=== PATIENT | female | born 1960 | race Caucasian/White ===

== ENCOUNTER 2018-02-05 15:24 | Emergency (ER) | payer OTHER, MEDICAID ==
[~2018-02-05] VITALS: Ht 149.9 cm; Wt 81.6 kg
[2018-02-05 15:30] VITALS: BP_SYST 205
[2018-02-05] MEDS ORDERED: NACL 0.9% 1,000 ML IV ONE (15:38)
[2018-02-05] MEDS ORDERED: ONDANSETRON HCL 4 MG/2 ML VIAL IVP ONE (15:45)
[2018-02-05 15:48] LABS: BILIRUBIN,URINE NEGATIVE (NEGATIVE); BLOOD, URINE NEGATIVE (NEGATIVE); CLARITY/URINE CLEAR (CLEAR); COLOR,URINE YELLOW (YELLOW); GLUCOSE,URINE NEGATIVE (NEGATIVE); KETONES,URINE NEGATIVE (NEGATIVE); LEUKOCYTE ESTERASE ,URINE NEGATIVE (NEGATIVE); NITRITE, URINE NEGATIVE (NEGATIVE); PH,URINE 6.5 (5.0-8.0); PROTEIN URINE NEGATIVE (NEGATIVE); UROBILINOGEN,URINE 0.2 (0.2-1.0)
[2018-02-05] MEDS ORDERED: MORPHINE 4 MG/ML INJ. SYRINGE IVP ONE (16:00)
[2018-02-05 16:13] LABS: BASOPHILS # (AUTO) 0.1 K/uL (0.0-0.2); BASOPHILS % (AUTO) 1.3 % (0.0-2.0); EOSINOPHILS # (AUTO) 0.1 K/uL (0.0-0.4); EOSINOPHILS % (AUTO) 1.8 % (0.0-4.0); HEMATOCRIT 34.3 % (36-48); HEMOGLOBIN 11.8 g/dL (12.0-16.0); LYMPHOCYTES # (AUTO) 2.3 K/uL (1.0-5.5); LYMPHOCYTES % (AUTO) 30.2 % (20.5-51.5); MEAN CORPUSCULAR HEMOGLOBIN 31 pg (27-31); MEAN CORPUSCULAR HGB CONC 34 % (32-36); MEAN CORPUSCULAR VOLUME 89 fL (79.0-98.0); MONOCYTES # (AUTO) 0.3 K/uL (0.0-1.0); MONOCYTES % (AUTO) 4.5 % (1.7-9.3); NEUTROPHILS # (AUTO) 4.9 K/uL (1.8-7.7); NEUTROPHILS % (AUTO) 62.2 % (40.0-70.0); PLATELET COUNT (AUTO) 227 K/uL (130-430); RED BLOOD CELL COUNT(AUTO) 3.85 MIL/uL (4.2-6.2); RED CELL DISTRIBUTION WIDTH 11.9 % (9.0-15.0); WHITE BLOOD COUNT (AUTO) 7.7 K/uL (4.8-10.8)
[2018-02-05 16:21] LABS: CREATININE 0.71 mg/dL (0.55-1.30); POTASSIUM 3.8 mmol/L (3.5-5.1)
[2018-02-05 16:24] LABS: PROTHROMBIN TIME 10.6 SECS (9.5-12.5)
[2018-02-05 16:26] LABS: ALBUMIN 3.6 g/dL (3.4-4.8); TOTAL BILIRUBIN 0.4 mg/dL (0.0-1.0)
[2018-02-05 17:25] VITALS: BP_SYST 146
== END 2018-02-05 17:25 | disposition home or self-care (01) ==
LOC: SED 15:24
DX: E10.43 Type 1 diabetes mellitus with diabetic autonomic (poly)neuropathy (principal); K31.84 Gastroparesis; I10 Essential (primary) hypertension; G44.209 Tension-type headache, unspecified, not intractable; M79.1 Myalgia
CPT/HCPCS: 36415; 71045; 80053; 81003; 82150; 82550; 83690; 84484; 85025; 85610; 85730; 93005; 96361; 96374; 96375; 99285; J2270; J2405; J7030

== ENCOUNTER 2019-04-18 22:01 | Emergency (ER) | payer OTHER, MEDICAID ==
[~2019-04-18] VITALS: Ht 180.3 cm; Wt 81.6 kg
[2019-04-18 22:21] VITALS: BP_SYST 163
--- NOTE | 2019-04-18 22:39 | NUR ---
Patient to ER H1 to gown for evaluation. Side rails up.
--- NOTE | 2019-04-18 22:40 | NUR ---
PATIENT BROUGHT IN BY BLS C/O OF NEAR SYNCOPE TONIGHT. C/O OF LOCALIZED HEADACHE AND MILD NECK PAIN. NO OTHER COMPLAINTS/INJURIES PER PATIENT OR NOTED. WILL CONTINUE TO MONITOR.
--- NOTE | 2019-04-18 22:44 | NUR ---
ER at bedside examining patient.
[2019-04-18 23:16] LABS: BILIRUBIN,URINE NEGATIVE (NEGATIVE); BLOOD, URINE NEGATIVE (NEGATIVE); CLARITY/URINE CLEAR (CLEAR); COLOR,URINE YELLOW (YELLOW); GLUCOSE,URINE 3+ (NEGATIVE); KETONES,URINE NEGATIVE (NEGATIVE); LEUKOCYTE ESTERASE ,URINE NEGATIVE (NEGATIVE); NITRITE, URINE NEGATIVE (NEGATIVE); PROTEIN URINE NEGATIVE (NEGATIVE); UROBILINOGEN,URINE 0.2 (0.2-1.0)
[2019-04-19 00:18] LABS: BASOPHILS % (AUTO) 0.3 % (0.0-2.0); HEMATOCRIT 33.7 % (36-48); HEMOGLOBIN 11.2 g/dL (12.0-16.0); LYMPHOCYTES # (AUTO) 0.9 K/uL (1.0-5.5); LYMPHOCYTES % (AUTO) 13.6 % (20.5-51.5); MEAN CORPUSCULAR HEMOGLOBIN 30 pg (27-31); MEAN CORPUSCULAR HGB CONC 33 % (32-36); MEAN CORPUSCULAR VOLUME 91 fL (79.0-98.0); MONOCYTES # (AUTO) 0.1 K/uL (0.0-1.0); MONOCYTES % (AUTO) 0.8 % (1.7-9.3); NEUTROPHILS # (AUTO) 5.5 K/uL (1.8-7.7); NEUTROPHILS % (AUTO) 85.3 % (40.0-70.0); PLATELET COUNT (AUTO) 189 K/uL (130-430); RED BLOOD CELL COUNT(AUTO) 3.71 MIL/uL (4.2-6.2); RED CELL DISTRIBUTION WIDTH 14.3 % (9.0-15.0); WHITE BLOOD COUNT (AUTO) 6.5 K/uL (4.8-10.8)
[2019-04-19 00:46] LABS: CALCIUM 8.5 mg/dL (8.4-11.0)
[2019-04-19 01:12] LABS: ALBUMIN 3.2 g/dL (3.4-4.8); TOTAL BILIRUBIN 0.2 mg/dL (0.0-1.0)
[2019-04-19] MEDS ORDERED: NACL 0.9% 1,000 ML IV ONE (01:30)
--- NOTE | 2019-04-19 01:47 | NUR ---
patient went to radiology in stable condition.
--- NOTE | 2019-04-19 02:02 | NUR ---
patient returned from radiology in stable condition.
--- NOTE | 2019-04-19 02:05 | NUR ---
# 20 gauge angiocath placed to RAC. Use of asceptic technique. Opsite placed over site. Blood return noted. Blood for lab drawn from site. Flushed with 10 cc of normal saline. No evidence of infiltration noted. Patient tolerated well.
--- NOTE | 2019-04-19 02:09 | NUR ---
Medicated per MD orders. IVF infusing with no s/s of infiltration at this time. Will cont to monitor
[2019-04-19] MEDS ORDERED: MORPHINE 4 MG/ML INJ. SYRINGE IVP ONE (03:00)
--- NOTE | 2019-04-19 03:25 | NUR ---
Medication was given, pt tolerated well. No adverse reaction, will continue to monitor.
[2019-04-19 05:15] VITALS: BP_SYST 144
--- NOTE | 2019-04-19 05:15 | NUR ---
Patient given written and verbal discharge instructions and verbalizes understanding. ER MD discussed with patient the results and treatment provided. Patient in stable condition. ID arm band removed. IV catheter removed intact and dressing applied, no active bleeding. Rx of Ibuprofen given. Patient educated on pain management and to follow up with PMD. Pain Scale 0. Opportunity for questions provided and answered. Medication side effect fact sheet provided.
--- NOTE | 2019-04-19 06:08 | NUR ---
Note undone in EDM - 04/19/19 at 0608 by [email or web address] Patient given written and verbal discharge instructions and verbalizes understanding. ER discussed with patient the results and treatment provided. Patient in stable condition. ID arm band removed. IV catheter removed intact and dressing applied, no active bleeding. Rx of Ibuprofen given. Patient educated on pain management and to follow up with PMD. Pain Scale 0. Opportunity for questions provided and answered. Medication side effect fact sheet provided.
== END 2019-04-19 05:15 | disposition home or self-care (01) ==
LOC: SED 22:01
DX: R42 Dizziness and giddiness (principal); R51 Headache; M54.2 Cervicalgia; E11.9 Type 2 diabetes mellitus without complications; I10 Essential (primary) hypertension
CPT/HCPCS: 36415; 70450; 71045; 72125; 80053; 81003; 82962; 84484; 85025; 85379; 96361; 96374; 99284; J2270; J7030

== ENCOUNTER 2020-12-09 14:05 | Emergency (ER) | payer OTHER, MEDICAID ==
[~2020-12-09] VITALS: Ht 149.9 cm; Wt 58.5 kg
[~2020-12-09 14:05] MED LIST: BENZ-16 PO; EMPA10TA PO; FAMO40TA7 PO; LACT1CAP72 PO; LEVO500T89 PO; LINA5TAB2 PO; LIP10 PO; LOSA100T3 PO; METR500T PO; OMEP40CA13 PO; SENN8.6T19 PO; VITD2000 PO
[2020-12-09 14:14] VITALS: BP_SYST 142
[2020-12-09 15:51] LABS: BASOPHILS # (AUTO) 0.1 K/uL (0.0-0.2); BASOPHILS % (AUTO) 0.6 % (0.0-2.0); EOSINOPHILS # (AUTO) 0.1 K/uL (0.0-0.4); EOSINOPHILS % (AUTO) 0.5 % (0.0-4.0); HEMATOCRIT 37.5 % (36-48); HEMOGLOBIN 12.9 g/dL (12.0-16.0); LYMPHOCYTES # (AUTO) 2.2 K/uL (1.0-5.5); LYMPHOCYTES % (AUTO) 17.5 % (20.5-51.5); MEAN CORPUSCULAR HEMOGLOBIN 32 pg (27-31); MEAN CORPUSCULAR HGB CONC 34 % (32-36); MEAN CORPUSCULAR VOLUME 94 fL (79.0-98.0); MONOCYTES # (AUTO) 0.6 K/uL (0.0-1.0); MONOCYTES % (AUTO) 5.2 % (1.7-9.3); NEUTROPHILS # (AUTO) 9.5 K/uL (1.8-7.7); NEUTROPHILS % (AUTO) 76.2 % (40.0-70.0); PLATELET COUNT (AUTO) 179 K/uL (130-430); WHITE BLOOD COUNT (AUTO) 12.5 K/uL (4.8-10.8)
[2020-12-09 16:06] LABS: CALCIUM 8.7 mg/dL (8.4-11.0); CREATININE 0.81 mg/dL (0.55-1.30)
[2020-12-09 16:13] LABS: ALBUMIN 3.4 g/dL (3.4-4.8); TOTAL BILIRUBIN 0.5 mg/dL (0.0-1.0)
[2020-12-09 16:29] LABS: PROTHROMBIN TIME 10.4 SECS (9.5-12.5)
[2020-12-09] MEDS ORDERED: KETOROLAC TROMETHAMINE 30 MG VIAL IM ONE (17:00)
[2020-12-09] MEDS ORDERED: IBUP-1969 PO (17:15)
[2020-12-09] MEDS ORDERED: HYDR-3919 PO (17:15)
[2020-12-09 17:39] VITALS: BP_SYST 142
== END 2020-12-09 17:39 | disposition home or self-care (01) ==
LOC: SED 14:05
DX: S30.0XXA Contusion of lower back and pelvis, initial encounter (principal); S00.83XA Contusion of other part of head, initial encounter; W01.0XXA Fall on same level from slipping, tripping and stumbling without subsequent striking against object, initial encounter; Y93.89 Activity, other specified; Y92.89 Other specified places as the place of occurrence of the external cause; Y99.8 Other external cause status
CPT/HCPCS: 36415; 70450; 71045; 72125; 72220; 76376; 80053; 82550; 84484; 85025; 85610; 85730; 93005; 96372; 99285; J1885

== ENCOUNTER 2021-04-18 18:16 | Emergency (ER) | payer OTHER, MEDICAID ==
[~2021-04-18] VITALS: Ht 149.9 cm; Wt 54.0 kg
[~2021-04-18 18:16] MED LIST changes: +HYDR-3919 PO; +IBUP-1969 PO
[2021-04-18 18:25] VITALS: BP_SYST 150
--- NOTE | 2021-04-18 20:00 | NUR ---
Pt walked in c/o burn to bilateral buttocks after sitting on something hot. +dressing applied prior to arrival, +multiple intact blisters and redness noted bilaterally.
--- NOTE | 2021-04-18 20:00 | NUR ---
Dr. Phan at bedside for MSE.
[2021-04-18 20:15] VITALS: BP_SYST 150
--- NOTE | 2021-04-18 20:15 | NUR ---
Patient given written and verbal discharge instructions and verbalizes understanding. ER MD discussed with patient the results and treatment provided. Patient in stable condition. ID arm band removed. Rx of LIDOCAINE TOPICAL, MOTRIN, TYLENOL given. Patient educated on pain management and to follow up with PMD. Pain Scale 8/10. Opportunity for questions provided and answered. Medication side effect fact sheet provided.
== END 2021-04-18 20:15 | disposition home or self-care (01) ==
LOC: SED 18:16
DX: T21.25XA Burn of second degree of buttock, initial encounter (principal); I10 Essential (primary) hypertension; E11.9 Type 2 diabetes mellitus without complications; Z79.899 Other long term (current) drug therapy; X08.8XXA Exposure to other specified smoke, fire and flames, initial encounter; Y93.89 Activity, other specified; Y92.89 Other specified places as the place of occurrence of the external cause; Y99.8 Other external cause status
CPT/HCPCS: 99282

== ENCOUNTER 2021-12-30 17:01 | Emergency (ER) | payer OTHER, MEDICAID ==
[~2021-12-30] VITALS: Ht 152.4 cm; Wt 59.0 kg
[~2021-12-30 17:01] MED LIST changes: -LEVO500T89 PO; +LEVO500T90 PO; -OMEP40CA13 PO; +OMEP40CA20 PO
--- NOTE | 2021-12-30 17:10 | NUR ---
Patient to ER bed 03 to gown for evaluation. Side rails up.
--- NOTE | 2021-12-30 17:12 | NUR ---
Pt brought by self, A&Ox4, pt presents to ER with abdominal pain, N/V, skin pink and warm, cap refill <3, VSS,respirations even and unlabored,cap refill <3.
[2021-12-30 19:05] LABS: BILIRUBIN,URINE NEGATIVE (NEGATIVE); BLOOD, URINE NEGATIVE (NEGATIVE); CLARITY/URINE CLEAR (CLEAR); COLOR,URINE YELLOW (YELLOW); GLUCOSE,URINE 3+ (NEGATIVE); KETONES,URINE NEGATIVE (NEGATIVE); LEUKOCYTE ESTERASE ,URINE NEGATIVE (NEGATIVE); NITRITE, URINE NEGATIVE (NEGATIVE); PROTEIN URINE NEGATIVE (NEGATIVE); UROBILINOGEN,URINE 0.2 (0.2-1.0)
[2021-12-30 19:21] LABS: BACTERIA,URINE RARE /HPF (None Seen); RBC,URINE NONE SEEN /HPF (0-3); WBC,URINE 0-3 /HPF (0-3)
[2021-12-30] MEDS ORDERED: NACL 0.9% 1,000 ML IV ONE (20:30)
[2021-12-30] MEDS ORDERED: MORPHINE 2 MG/ML INJ. SYRINGE IVP ONE (20:30)
[2021-12-30 20:32] LABS: HEMATOCRIT 43.7 % (36-48); HEMOGLOBIN 14.8 g/dL (12.0-16.0); MEAN CORPUSCULAR HEMOGLOBIN 33 pg (27-31); MEAN CORPUSCULAR HGB CONC 34 % (32-36); MEAN CORPUSCULAR VOLUME 96 fL (79.0-98.0); PLATELET COUNT (AUTO) 176 K/uL (130-430); RED BLOOD CELL COUNT(AUTO) 4.56 MIL/uL (4.2-6.2); RED CELL DISTRIBUTION WIDTH 12.8 % (9.0-15.0); WHITE BLOOD COUNT (AUTO) 22.3 K/uL (4.8-10.8)
[2021-12-30 20:44] LABS: CALCIUM 9.5 mg/dL (8.4-11.0); CREATININE 0.68 mg/dL (0.55-1.30); POTASSIUM 3.3 mmol/L (3.5-5.1)
[2021-12-30] MEDS ORDERED: PANTOPRAZOLE SODIUM 40 MG/VIAL (PROTONIX) IVP ONE (20:45)
[2021-12-30 21:02] LABS: ALBUMIN 3.6 g/dL (3.4-4.8); TOTAL BILIRUBIN 0.3 mg/dL (0.0-1.0)
[2021-12-30 23:38] LABS: BAND % (MANUAL) 6 % (0-6); BASOPHILS % (MANUAL) 0 % (0-2); EOSINOPHILS % (MANUAL) 0 % (0-7); LYMPHOCYTES % (MANUAL) 7 % (20-46); MONOCYTES % (MANUAL) 2 % (0-11)
[2021-12-30] MEDS ORDERED: MOM PO (23:58)
--- NOTE | 2021-12-31 00:10 | NUR ---
Patient given written and verbal discharge instructions and verbalizes understanding. ER MD [place] discussed with patient the results and treatment provided. Patient in stable condition. ID arm band removed. IV catheter removed intact and dressing applied, no active bleeding. Rx of MOM sent to pharmacy of choice. Patient educated on pain management and to follow up with PMD. Pain Scale 0/10. Opportunity for questions provided and answered. Medication side effect fact sheet provided. Addendum: 12/31/21 at 0019 by [email or web address] SHELDON Ruiz
[2021-12-31 00:13] VITALS: BP_SYST 124
== END 2021-12-30 23:59 | disposition home or self-care (01) ==
LOC: SED 17:01
DX: K59.00 Constipation, unspecified (principal); I10 Essential (primary) hypertension; E11.9 Type 2 diabetes mellitus without complications; Z79.899 Other long term (current) drug therapy
CPT/HCPCS: 36415; 74176; 76376; 80053; 81000; 83690; 85007; 85027; 96361; 96374; 96375; 99284; C9113; J2270; J7030

== ENCOUNTER 2022-07-22 20:35 | Emergency (ER) | payer OTHER, MEDICAID ==
[~2022-07-22] VITALS: Ht 152.4 cm; Wt 54.4 kg
[~2022-07-22 20:35] MED LIST changes: +LEVO-62 PO; -LEVO500T90 PO; +MOM PO
[2022-07-22 20:53] VITALS: BP_SYST 162
--- NOTE | 2022-07-22 21:03 | NUR ---
PT FROM HOME WITH C/O OF [facility] YESTERDAY DUE TO REPORTED WEAK KNEES. REPORTS HEAD TRAUMA, RUQ PAIN, PAIN WITH INSPIRATION, THOMAS. PT A&O X2, AMBULATORY. MADE AWARE OF NEED FOR MSE.
--- NOTE | 2022-07-22 22:44 | NUR ---
DR. BRIGHT WITH PATIENT FOR EVALUATION.
[2022-07-22] MEDS ORDERED: KETOROLAC TROMETHAMINE 60 MG/2 ML VIAL IM ONE (23:00)
[2022-07-22] MEDS ORDERED: HYDR-3917 PO (23:00)
[2022-07-22] MEDS ORDERED: IBUP-1969 PO (23:00)
[2022-07-22 23:25] VITALS: BP_SYST 142
--- NOTE | 2022-07-22 23:25 | NUR ---
Patient given written and verbal discharge instructions and verbalizes understanding. ER MD discussed with patient the results and treatment provided. Patient in stable condition. ID arm band removed. Rx of [place] and Ibuprofen given. Patient educated on pain management and to follow up with PMD. Pain Scale 2/10. Opportunity for questions provided and answered. Medication side effect fact sheet provided.
== END 2022-07-22 23:25 | disposition home or self-care (01) ==
LOC: SED 20:35
DX: R07.89 Other chest pain (principal); R10.9 Unspecified abdominal pain; M25.511 Pain in right shoulder; R06.02 Shortness of breath; E11.9 Type 2 diabetes mellitus without complications; I10 Essential (primary) hypertension; Z79.899 Other long term (current) drug therapy
CPT/HCPCS: 99284; 70450; 71045; 72125; 76376; 96372; J1885

== ENCOUNTER 2022-08-10 14:48 | Emergency (ER) | payer OTHER, MEDICAID ==
[~2022-08-10] VITALS: Ht 149.9 cm; Wt 52.6 kg
[~2022-08-10 14:48] MED LIST changes: +HYDR-3917 PO
[2022-08-10 15:20] VITALS: BP_SYST 170
[2022-08-10] MEDS ORDERED: KETOROLAC TROMETHAMINE 60 MG/2 ML VIAL IM ONE (15:30)
--- NOTE | 2022-08-10 15:31 | NUR ---
ER at bedside examining patient.
[2022-08-10] MEDS ORDERED: LIDO1ADH71 TD (15:37)
[2022-08-10] MEDS ORDERED: CYCL10TA24 PO (15:37)
[2022-08-10] MEDS ORDERED: NAPR-690 PO (15:37)
--- NOTE | 2022-08-10 18:00 | NUR ---
Patient is a 62-year-old female with a history of DM, hypertension, and arthritis who presents with 3-day history of left-sided neck pain that is worse with movement. Patient receives injections all over her head for arthritis.
--- NOTE | 2022-08-10 19:15 | NUR ---
Patient given written and verbal discharge instructions and verbalizes understanding. ER MD discussed with patient the results and treatment provided. Patient in stable condition. ID arm band removed. Rx of FLEXERIL LIDOCAINE AND NAPROXEN given. Patient educated on pain management and to follow up with PMD. Opportunity for questions provided and answered. Medication side effect fact sheet provided.
--- NOTE | 2022-08-12 15:45 | NUR ---
Note nataliia in ED - 08/12/22 at 2341 by ALBERT Patient is a 62-year-old female with a history of DM, hypertension, and arthritis who presents with 3-day history of left-sided neck pain that is worse with movement. Patient receives injections all over her head for arthritis.
[2022-08-12 23:35] VITALS: BP_SYST 170
== END 2022-08-10 17:00 | disposition home or self-care (01) ==
LOC: SED 14:48
DX: S29.012A Strain of muscle and tendon of back wall of thorax, initial encounter (principal); M54.2 Cervicalgia; I10 Essential (primary) hypertension; E11.9 Type 2 diabetes mellitus without complications; Z79.899 Other long term (current) drug therapy; X50.0XXA Overexertion from strenuous movement or load, initial encounter; Y93.89 Activity, other specified; Y92.89 Other specified places as the place of occurrence of the external cause; Y99.8 Other external cause status
CPT/HCPCS: 99283; 96372; J1885

== ENCOUNTER 2022-09-11 15:24 | Inpatient (IN) | payer BC, MEDICAID ==
[~2022-09-11] VITALS: Ht 149.9 cm; Wt 53.5 kg
[~2022-09-11 15:24] MED LIST changes: +CYCL10TA24 PO; +LIDO1ADH71 TD; +NAPR-690 PO
[2022-09-11 15:30] VITALS: BP_SYST 187
[2022-09-11] MEDS ORDERED: NS 500 ML IV ONE (18:00)
--- NOTE | 2022-09-11 18:00 | NUR ---
PT BIB SELF FROM HOME. CC SOB, PT LIVES ALONE WITH PAST MEDICAL HISTORY DIABETES. PT WITH FLU LIKE SYMPTOMS OF COUGH WITH PRODUCTION OF PHLEGM, DENIES NVD.
[2022-09-11 18:37] LABS: BASOPHILS % (AUTO) 0.4 % (0.0-2.0); EOSINOPHILS # (AUTO) 0.1 K/uL (0.0-0.4); MONOCYTES # (AUTO) 0.5 K/uL (0.0-1.0); NEUTROPHILS # (AUTO) 7.7 K/uL (1.8-7.7); RED BLOOD CELL COUNT(AUTO) 4.19 MIL/uL (4.2-6.2); WHITE BLOOD COUNT (AUTO) 9.3 K/uL (4.8-10.8)
[2022-09-11] MEDS ORDERED: iohexoL 350 mgI/mL, 100 ML INFUS..BTL IV ONE (18:37)
--- NOTE | 2022-09-11 18:45 | NUR ---
# 20 gauge angiocath placed to lac. Use of asceptic technique. Opsite placed over site. Blood return noted. Blood for lab drawn from site. Flushed with 10 cc of normal saline. No evidence of infiltration noted. Patient tolerated well.
[2022-09-11 18:46] LABS: EOSINOPHILS % (AUTO) 0.7 % (0.0-4.0); HEMATOCRIT 40.5 % (36-48); HEMOGLOBIN 14.1 g/dL (12.0-16.0); LYMPHOCYTES # (AUTO) 1.1 K/uL (1.0-5.5); LYMPHOCYTES % (AUTO) 11.3 % (20.5-51.5); MEAN CORPUSCULAR HEMOGLOBIN 34 pg (27-31); MEAN CORPUSCULAR HGB CONC 35 % (32-36); MEAN CORPUSCULAR VOLUME 97 fL (79.0-98.0); MONOCYTES % (AUTO) 4.9 % (1.7-9.3); NEUTROPHILS % (AUTO) 82.7 % (40.0-70.0); PLATELET COUNT (AUTO) 143 K/uL (130-430); RED CELL DISTRIBUTION WIDTH 13.4 % (9.0-15.0)
[2022-09-11 18:49] LABS: INR 0.9 (0.8-1.2); PROTHROMBIN TIME 9.4 SECS (9.5-12.5)
[2022-09-11 18:53] LABS: ALANINE AMINOTRANSFERASE 30 U/L (12-78); ALBUMIN 3.3 g/dL (3.4-4.8); ANION GAP 10 (5-15); ASPARTATE AMINOTRANSFERASE 25 U/L (10-37); CALCIUM 9.3 mg/dL (8.4-11.0); CHLORIDE 96 mmol/L (98-107); CREATININE 0.71 mg/dL (0.55-1.30); TOTAL BILIRUBIN 0.5 mg/dL (0.0-1.0); UREA NITROGEN, BLOOD 21 mg/dL (8-21)
[2022-09-11 19:07] LABS: GFR AFRICAN AMERICAN 107 mL/min (>90)
[2022-09-11 19:08] LABS: GLUCOSE 404 mg/dL (70-99)
[2022-09-11] MEDS ORDERED: KCL 20 mEq in NS 1000 mL 1,000 ML IV ONE (19:15)
--- NOTE | 2022-09-11 19:21 | NUR ---
ER at bedside examining patient.
[2022-09-11] MEDS ORDERED: SERT-131 PO (19:27)
[2022-09-11] MEDS ORDERED: OMEP40CA20 PO (19:27)
[2022-09-11] MEDS ORDERED: METF-834 PO (19:28)
[2022-09-11] MEDS ORDERED: CYCL10TA25 PO (19:28)
[2022-09-11] MEDS ORDERED: LAMO25TA PO (19:28)
[2022-09-11] MEDS ORDERED: DOCU-192 PO (19:28)
[2022-09-11] MEDS ORDERED: LOSA1TAB43 PO (19:28)
[2022-09-11] MEDS ORDERED: LIP20 PO (19:28)
[2022-09-11] MEDS ORDERED: NAPR-1174 PO (19:28)
[2022-09-11] MEDS ORDERED: DIPH25TA62 PO (19:28)
[2022-09-11] MEDS ORDERED: PROG200C11 PO (19:28)
--- NOTE | 2022-09-11 19:45 | NUR ---
Med. reconciled per pt list.
--- NOTE | 2022-09-11 19:49 | NUR ---
REPORT RECEIVED FROM MESSI ANTOINE
[2022-09-11] MEDS ORDERED: KCL 20 mEq in 100 mL (PREMIX) 100 ML IV ONE (20:00)
[2022-09-11] MEDS ORDERED: ASPIRIN 325 MG TABLET PO ONE (20:00)
[2022-09-11] MEDS ORDERED: NITROGLYCERIN 0.4 MG TAB.SUBL SL ONE (20:00)
[2022-09-11] MEDS ORDERED: KETOROLAC TROMETHAMINE 30 MG VIAL IVP ONE (20:15)
--- NOTE | 2022-09-11 21:28 | NUR ---
IV IN LEFT AC INFILITRATED # 20 gauge angiocath placed to RAC. Use of asceptic technique. Opsite placed over site. Blood return noted. Blood for lab drawn from site. Flushed with 10 cc of normal saline. No evidence of infiltration noted. Patient tolerated well.
[2022-09-12] VITALS: BP_SYST 155
[2022-09-12] MEDS ORDERED: INSULIN REGULAR, HUMAN 10 UNITS/0.1 ML, 3 ML VIAL ONE (01:26)
[2022-09-12] MEDS: KETOROLAC TROMETHAMINE 30 MG VIAL IVP PRN ×4 (01:27→22:24)
[2022-09-12] MEDS: guaiFENesin 200 MG/CODEINE 20 MG/ 10 ML UDC PO PRN ×3 (01:27→22:34)
[2022-09-12] MEDS: INSULIN REGULAR, HUMAN 100 UNITS/ML, 3 ML VIAL (humuLIN R) SUBCUT PRN ×4 (01:30→22:16)
[2022-09-12 04:00] VITALS: BP_SYST 158
--- NOTE | 2022-09-12 08:01 | NUR ---
Admit bed requested Patient will be admitted to care of . Admitted to TELEMETRY unit. Diagnosis INFLUENZA A Inpatient (Yes or No) Y Observation (Yes or No) N Orientation concerns or request close to nursing station (Yes or No) N Covid Status N On vent or bipap N Isolation requirements Y Needs a sitter N From Home (Yes or if No enter name of facility) Requires Dialysis (Yes or No) N Med Rec Completed (Yes of No) Y
--- NOTE | 2022-09-12 08:50 | NUR ---
ACCMISTYECK 158 PT SERVED DIABETIC DIET.
[2022-09-12] MEDS ORDERED: OSELTAMIVIR PHOSPHATE 75 MG CAPSULE PO SCH (11:45)
[2022-09-12] MEDS ORDERED: OSELTAMIVIR PHOSPHATE 75 MG CAPSULE PO ONE (12:00)
[2022-09-12] MEDS ORDERED: KETOROLAC TROMETHAMINE 30 MG VIAL ONE (14:41)
--- NOTE | 2022-09-12 14:49 | NUR ---
Accucheck blood sugar 258 asymptomatic.
--- NOTE | 2022-09-12 15:11 | NUR ---
Admission Note Received patient from ER with diagnosis of INFLUNEZA A . Initial Plan of Care discussed-patient verbalized understanding.. Oriented to room, call light, pain management and safety.
[2022-09-12 15:28] VITALS: BP_SYST 155
--- NOTE | 2022-09-12 15:32 | NUR ---
Patient will be admitted to care of [facility]. Admitted to tele unit. Will go to room 100a. Belongings list completed. Complete and up to date summary report printed. SBAR report to be given at bedside with opportunity for questions.
--- NOTE | 2022-09-12 18:55 | NUR ---
CLOSING NOTES PT STABLE NOTIN ACUTE DISTRESS. DENIES SOB AT THIS TIME. NEED ATTENDED
[2022-09-12 20:00] VITALS: BP_SYST 155
--- NOTE | 2022-09-12 20:00 | NUR ---
OPENING Patient resting in bed, 96% on room air. No sign of distress noted. Safety and isolation precautions in place.
[2022-09-12] MEDS: OSELTAMIVIR PHOSPHATE 75 MG CAPSULE PO SCH (22:07)
--- NOTE | 2022-09-12 22:34 | NUR ---
Patient reporting headache and sore throat. Given Toradol and Robitussin PRN. IVs to left and right AC patent. Safety precautions in place.
[2022-09-13] VITALS: BP_SYST 137
--- NOTE | 2022-09-13 04:15 | NUR ---
ROUNDS Patient sleeping in bed, unlabored breathing on room air. No distress noted.
[2022-09-13] MEDS: INSULIN REGULAR, HUMAN 100 UNITS/ML, 3 ML VIAL (humuLIN R) SUBCUT PRN ×4 (06:57→20:38)
[2022-09-13] MEDS: guaiFENesin 200 MG/CODEINE 20 MG/ 10 ML UDC PO PRN ×3 (07:00→22:34)
--- NOTE | 2022-09-13 07:06 | NUR ---
CLOSING Patient resting in bed, unlabored breathing on room air. Complaint of sore throat this morning, given Robitussin PRN. Ambulated to bathroom. Safety precautions in place.
[2022-09-13 07:40] LABS: ALBUMIN 2.7 g/dL (3.4-4.8); CALCIUM 8.3 mg/dL (8.4-11.0); CREATININE 0.37 mg/dL (0.55-1.30); TOTAL BILIRUBIN 0.5 mg/dL (0.0-1.0)
[2022-09-13 07:43] LABS: BASOPHILS % (AUTO) 0.3 % (0.0-2.0); EOSINOPHILS % (AUTO) 0.3 % (0.0-4.0); HEMATOCRIT 36.1 % (36-48); HEMOGLOBIN 12.7 g/dL (12.0-16.0); LYMPHOCYTES # (AUTO) 1.4 K/uL (1.0-5.5); LYMPHOCYTES % (AUTO) 21.4 % (20.5-51.5); MEAN CORPUSCULAR HEMOGLOBIN 34 pg (27-31); MEAN CORPUSCULAR HGB CONC 35 % (32-36); MEAN CORPUSCULAR VOLUME 96 fL (79.0-98.0); MONOCYTES # (AUTO) 0.5 K/uL (0.0-1.0); NEUTROPHILS # (AUTO) 4.6 K/uL (1.8-7.7); PLATELET COUNT (AUTO) 140 K/uL (130-430); RED BLOOD CELL COUNT(AUTO) 3.77 MIL/uL (4.2-6.2); RED CELL DISTRIBUTION WIDTH 13.1 % (9.0-15.0)
[2022-09-13 08:16] VITALS: BP_SYST 145
[2022-09-13] MEDS: OSELTAMIVIR PHOSPHATE 75 MG CAPSULE PO SCH ×2 (08:26→20:32)
[2022-09-13] MEDS: KETOROLAC TROMETHAMINE 30 MG VIAL IVP PRN ×2 (08:26→14:51)
[2022-09-13] MEDS: ATORVASTATIN 20 MG TABLET PO SCH (08:27)
[2022-09-13] MEDS: SERTRALINE HCL 50 MG TABLET PO SCH (08:27)
[2022-09-13] MEDS: LOSARTAN POTASSIUM 50 MG TABLET (COZAAR) PO SCH (08:27)
[2022-09-13 08:34] LABS: WHITE BLOOD COUNT (AUTO) 6.6 K/uL (4.8-10.8)
[2022-09-13] MEDS ORDERED: IPRATROPIUM/ALBUTEROL SULFATE 3 ML AMPUL.NEB (DUONEB) INH PRN (11:45)
[2022-09-13 11:46] VITALS: BP_SYST 153
[2022-09-13 14:54] VITALS: BP_SYST 148
[2022-09-13] MEDS: IPRATROPIUM/ALBUTEROL SULFATE 3 ML AMPUL.NEB (DUONEB) INH SCH ×3 (15:00→23:37)
[2022-09-13] MEDS ORDERED: methylPREDNISolone SOD SUCC/PF 62.5 MG/ML VIAL IVP ONE (15:15)
--- NOTE | 2022-09-13 15:22 | NUR ---
0800 LATE ENTRY DUE TO CARE- PT STABLE .NOT IN ACUTE DISTRESS.. RES EVEN AND UNLABORED.VITALS STABLE. SAFETY/FALL PRECAUTION IN PLACE. KEPT COMFORTABLE. 92 SATURATION 95% ON RA.NOT IN ACUTE DISTRESS Addendum: 09/13/22 at 1529 by Cheryl Bull RN 1000-PT STABLE NOT IN ACUTE DISTRESS.
--- NOTE | 2022-09-13 15:29 | NUR ---
PT STABLE SEEN BY DR LEE.PT C/ OF THROAT PAIN /COUGH MEDICATED WITH TORADOL IV ANF ROBITUSSIN ORDERED. WILL CONTINUE TO MONITOR
--- NOTE | 2022-09-13 19:21 | NUR ---
CLOSING NOTES PT STABLE RESTING COMFORTABLY. NEEDS ATTENDED. NOT IN ACUTE DISTRESS
[2022-09-13 20:00] VITALS: BP_SYST 140
[2022-09-13] MEDS: methylPREDNISolone SOD SUCC/PF 62.5 MG/ML VIAL IVP SCH (22:24)
[2022-09-14] MEDS: KETOROLAC TROMETHAMINE 30 MG VIAL IVP PRN ×3 (00:02→23:42)
[2022-09-14] MEDS: IPRATROPIUM/ALBUTEROL SULFATE 3 ML AMPUL.NEB (DUONEB) INH SCH ×6 (03:16→23:20)
[2022-09-14 05:58] VITALS: BP_SYST 136
[2022-09-14] MEDS: INSULIN REGULAR, HUMAN 100 UNITS/ML, 3 ML VIAL (humuLIN R) SUBCUT PRN ×4 (07:43→22:07)
[2022-09-14 08:00] VITALS: BP_SYST 157
--- NOTE | 2022-09-14 08:00 | NUR ---
Schs5om notes Alert,oriented. complain of headache, still coughing, ambulate to the bathroom, on room air, tolerating so far. Call light within reach. Enc to call for help as needed
[2022-09-14] MEDS: methylPREDNISolone SOD SUCC/PF 62.5 MG/ML VIAL IVP SCH (08:44)
[2022-09-14] MEDS: LOSARTAN POTASSIUM 50 MG TABLET (COZAAR) PO SCH (08:45)
[2022-09-14] MEDS: OSELTAMIVIR PHOSPHATE 75 MG CAPSULE PO SCH ×2 (08:45→22:01)
[2022-09-14] MEDS: ATORVASTATIN 20 MG TABLET PO SCH (08:45)
[2022-09-14] MEDS: SERTRALINE HCL 50 MG TABLET PO SCH (08:45)
--- NOTE | 2022-09-14 12:15 | NUR ---
notes eating lunch, needs attended
[2022-09-14 16:03] VITALS: BP_SYST 155
--- NOTE | 2022-09-14 18:24 | NUR ---
BLOOD SUGAR IS 456- PAGED DR. CHOPRA. WAITING FOR MD TO CALL BACK.
--- NOTE | 2022-09-14 18:41 | NUR ---
CLOSING NOTES EATING DINNER, NO CHANGE IN ASSESSMENT. DENIES ANY PAIN. WILL ENDORSE
--- NOTE | 2022-09-14 19:15 | NUR ---
MD CALLED- SPOKE TO DR. CHOPRA AND MADE AWARE OF BLOOD SUGAR OF 456. NEW ORDERS RECEIVED. MD ORDERED TO CONTINUE BLOOD SUGAR MEDICATIONS AT HOME.
[2022-09-14] MEDS ORDERED: INSULIN REGULAR, HUMAN 10 UNITS/0.1 ML, 3 ML VIAL SUBCUT ONE (19:30)
[2022-09-14 20:00] VITALS: BP_SYST 160
--- NOTE | 2022-09-14 20:02 | NUR ---
RECEIVED PT AMBULATING TO THE BATHROOM. GAIT STEADY. +COUGH WITH THICK BROWN MUCUS. LUNGS CLEAR. O2 SAT 97% ON RA
[2022-09-14] MEDS ORDERED: metFORMIN HCL 500 MG TABLET PO ONE (20:45)
[2022-09-14] MEDS: predniSONE 20 MG TABLET PO SCH (22:00)
[2022-09-14] MEDS: guaiFENesin 200 MG/CODEINE 20 MG/ 10 ML UDC PO PRN (22:00)
[2022-09-15 02:32] VITALS: BP_SYST 140
[2022-09-15] MEDS: IPRATROPIUM/ALBUTEROL SULFATE 3 ML AMPUL.NEB (DUONEB) INH SCH ×5 (03:00→19:42)
[2022-09-15] MEDS: INSULIN REGULAR, HUMAN 100 UNITS/ML, 3 ML VIAL (humuLIN R) SUBCUT PRN ×3 (06:21→17:06)
[2022-09-15] MEDS: OSELTAMIVIR PHOSPHATE 75 MG CAPSULE PO SCH (09:31)
[2022-09-15] MEDS: SERTRALINE HCL 50 MG TABLET PO SCH (09:31)
[2022-09-15] MEDS: metFORMIN HCL 500 MG TABLET PO SCH ×2 (09:31→17:06)
[2022-09-15] MEDS: ATORVASTATIN 20 MG TABLET PO SCH (09:31)
[2022-09-15] MEDS: LOSARTAN POTASSIUM 50 MG TABLET (COZAAR) PO SCH (09:32)
[2022-09-15] MEDS: predniSONE 20 MG TABLET PO SCH (09:32)
[2022-09-15] MEDS: KETOROLAC TROMETHAMINE 30 MG VIAL IVP PRN ×2 (10:27→17:05)
[2022-09-15 11:21] VITALS: BP_SYST 122
[2022-09-15] MEDS ORDERED: OSEL75CA PO (12:49)
[2022-09-15 13:04] VITALS: BP_SYST 149
[2022-09-15] MEDS: guaiFENesin 200 MG/CODEINE 20 MG/ 10 ML UDC PO PRN (15:33)
[2022-09-15 17:02] VITALS: BP_SYST 143
== END 2022-09-15 20:24 | disposition home or self-care (01) | DRG 202 ==
LOC: SED 15:24 → STU 09-12 01:02 → SMU 09-13 21:21
PROVIDERS: ADMIT Internal Medicine; ATTEND Internal Medicine
DX: J45.901 Unspecified asthma with (acute) exacerbation (principal); J12.9 Viral pneumonia, unspecified; J10.08 Influenza due to other identified influenza virus with other specified pneumonia; F32.A Depression, unspecified; E78.00 Pure hypercholesterolemia, unspecified; I10 Essential (primary) hypertension; G89.4 Chronic pain syndrome; M19.90 Unspecified osteoarthritis, unspecified site; E11.9 Type 2 diabetes mellitus without complications; K21.9 Gastro-esophageal reflux disease without esophagitis; Z20.822 Contact with and (suspected) exposure to COVID-19; Z90.711 Acquired absence of uterus with remaining cervical stump; Z90.49 Acquired absence of other specified parts of digestive tract; Z79.891 Long term (current) use of opiate analgesic; Z79.899 Other long term (current) drug therapy
CPT/HCPCS: 36415; 71046-TC; 71260-TC; 76376; 80053; 82962; 83036; 83605; 83880; 84484; 85025; 85610-TC; 85730-TC; 87040; 93005; 93306; 94640; 94760; 96365; 96366; 96375; 99285; G9035; J1815; J1885; J2930; J3480; J7512; Q9967

== ENCOUNTER 2023-01-12 12:23 | Emergency (ER) | payer OTHER, MEDICAID ==
[~2023-01-12] VITALS: Ht 149.9 cm; Wt 55.3 kg
[~2023-01-12 12:23] MED LIST changes: +CYCL10TA25 PO; +DIPH25TA62 PO; +DOCU-192 PO; +LAMO25TA PO; +LIP20 PO; -LOSA100T3 PO; +LOSA100T4 PO; +LOSA1TAB43 PO; +METF-834 PO; +NAPR-1174 PO; +OSEL75CA PO; +PROG200C11 PO; +SERT-131 PO
[2023-01-12 12:41] VITALS: BP_SYST 203
[2023-01-12 13:05] LABS: BILIRUBIN,URINE NEGATIVE (NEGATIVE); BLOOD, URINE NEGATIVE (NEGATIVE); COLOR,URINE YELLOW (YELLOW); GLUCOSE,URINE NEGATIVE (NEGATIVE); KETONES,URINE TRACE (NEGATIVE); LEUKOCYTE ESTERASE ,URINE NEGATIVE (NEGATIVE); NITRITE, URINE NEGATIVE (NEGATIVE); PH,URINE 6.5 (5.0-8.0); PROTEIN URINE 1+ (NEGATIVE)
[2023-01-12 13:19] LABS: BASOPHILS # (AUTO) 0.1 K/uL (0.0-0.2); BASOPHILS % (AUTO) 0.5 % (0.0-2.0); EOSINOPHILS % (AUTO) 0.2 % (0.0-4.0); HEMATOCRIT 39.8 % (36-48); HEMOGLOBIN 13.9 g/dL (12.0-16.0); LYMPHOCYTES % (AUTO) 18.4 % (20.5-51.5); MEAN CORPUSCULAR HEMOGLOBIN 33 pg (27-31); MEAN CORPUSCULAR HGB CONC 35 % (32-36); MEAN CORPUSCULAR VOLUME 95 fL (79.0-98.0); MONOCYTES # (AUTO) 0.6 K/uL (0.0-1.0); NEUTROPHILS # (AUTO) 8.2 K/uL (1.8-7.7); NEUTROPHILS % (AUTO) 74.9 % (40.0-70.0); PLATELET COUNT (AUTO) 198 K/uL (130-430); RED BLOOD CELL COUNT(AUTO) 4.17 MIL/uL (4.2-6.2); RED CELL DISTRIBUTION WIDTH 13.4 % (9.0-15.0); WHITE BLOOD COUNT (AUTO) 10.9 K/uL (4.8-10.8)
[2023-01-12 13:25] LABS: CLARITY/URINE SLIGHTLY HAZY (CLEAR)
[2023-01-12 13:29] LABS: ALBUMIN 3.4 g/dL (3.4-4.8); CREATININE 0.7 mg/dL (0.55-1.30); TOTAL BILIRUBIN 0.9 mg/dL (0.0-1.0)
[2023-01-12] MEDS ORDERED: POTASSIUM CHLORIDE 20 MEQ TAB.PRT.SR PO ONE (14:00)
[2023-01-12] MEDS ORDERED: ONDANSETRON 4 MG ODT TAB PO ONE (14:15)
[2023-01-12] MEDS ORDERED: ONDA-8 TL (15:18)
[2023-01-12 15:49] VITALS: BP_SYST 139
== END 2023-01-12 15:51 | disposition home or self-care (01) ==
LOC: SED 12:23
DX: R11.2 Nausea with vomiting, unspecified (principal); R14.0 Abdominal distension (gaseous); I10 Essential (primary) hypertension; E11.9 Type 2 diabetes mellitus without complications; J44.9 Chronic obstructive pulmonary disease, unspecified; M19.90 Unspecified osteoarthritis, unspecified site; Z79.84 Long term (current) use of oral hypoglycemic drugs
CPT/HCPCS: 99284; 74176; 80053; 83690; 85025; 36415; 76376; 81003; Q0162

== ENCOUNTER 2023-02-01 12:47 | Emergency (ER) | payer OTHER, MEDICAID ==
[~2023-02-01] VITALS: Ht 149.9 cm; Wt 50.3 kg
[~2023-02-01 12:47] MED LIST changes: +ONDA-8 TL
[2023-02-01 13:15] VITALS: BP_SYST 144
[2023-02-01 13:53] LABS: BILIRUBIN,URINE NEGATIVE (NEGATIVE); BLOOD, URINE NEGATIVE (NEGATIVE); CLARITY/URINE CLEAR (CLEAR); COLOR,URINE YELLOW (YELLOW); GLUCOSE,URINE NEGATIVE (NEGATIVE); KETONES,URINE NEGATIVE (NEGATIVE); LEUKOCYTE ESTERASE ,URINE NEGATIVE (NEGATIVE); NITRITE, URINE NEGATIVE (NEGATIVE); PROTEIN URINE NEGATIVE (NEGATIVE); UROBILINOGEN,URINE 0.2 (0.2-1.0)
[2023-02-01 13:56] LABS: BASOPHILS % (AUTO) 0.4 % (0.0-2.0); EOSINOPHILS % (AUTO) 0.3 % (0.0-4.0); HEMATOCRIT 39.5 % (36-48); HEMOGLOBIN 13.9 g/dL (12.0-16.0); LYMPHOCYTES # (AUTO) 2.3 K/uL (1.0-5.5); LYMPHOCYTES % (AUTO) 25.8 % (20.5-51.5); MEAN CORPUSCULAR HEMOGLOBIN 34 pg (27-31); MEAN CORPUSCULAR HGB CONC 35 % (32-36); MEAN CORPUSCULAR VOLUME 95 fL (79.0-98.0); MONOCYTES # (AUTO) 0.4 K/uL (0.0-1.0); MONOCYTES % (AUTO) 4.4 % (1.7-9.3); NEUTROPHILS # (AUTO) 6.2 K/uL (1.8-7.7); NEUTROPHILS % (AUTO) 69.1 % (40.0-70.0); PLATELET COUNT (AUTO) 194 K/uL (130-430); RED BLOOD CELL COUNT(AUTO) 4.14 MIL/uL (4.2-6.2); RED CELL DISTRIBUTION WIDTH 13.5 % (9.0-15.0); WHITE BLOOD COUNT (AUTO) 8.9 K/uL (4.8-10.8)
[2023-02-01 14:09] LABS: CALCIUM 8.6 mg/dL (8.4-11.0); CREATININE 0.67 mg/dL (0.55-1.30)
[2023-02-01 14:13] LABS: ALBUMIN 3.5 g/dL (3.4-4.8); TOTAL BILIRUBIN 0.7 mg/dL (0.0-1.0)
[2023-02-01] MEDS ORDERED: FAMO40TA7 PO (15:24)
[2023-02-01 15:32] VITALS: BP_SYST 144
== END 2023-02-01 15:32 | disposition home or self-care (01) ==
LOC: SED 12:47
DX: K21.9 Gastro-esophageal reflux disease without esophagitis (principal); R11.2 Nausea with vomiting, unspecified; J44.9 Chronic obstructive pulmonary disease, unspecified; E11.9 Type 2 diabetes mellitus without complications; I10 Essential (primary) hypertension; Z79.899 Other long term (current) drug therapy
CPT/HCPCS: 36415; 76700-TC; 80053; 81003; 82150; 83690; 85025; 99284

== ENCOUNTER 2023-03-01 13:57 | Emergency (ER) | payer OTHER, MEDICAID ==
[2023-03-01 14:12] VITALS: BP_SYST 175; PULSE 100; RESP 17; TEMP 98.5; O2SAT 96
[2023-03-01] MEDS ORDERED: IBUPROFEN 600 MG TABLET PO ONE (14:45)
[2023-03-01 15:01] LABS: BILIRUBIN,URINE NEGATIVE (NEGATIVE); BLOOD, URINE NEGATIVE (NEGATIVE); CLARITY/URINE CLEAR (CLEAR); COLOR,URINE YELLOW (YELLOW); GLUCOSE,URINE NEGATIVE (NEGATIVE); KETONES,URINE TRACE (NEGATIVE); LEUKOCYTE ESTERASE ,URINE NEGATIVE (NEGATIVE); NITRITE, URINE NEGATIVE (NEGATIVE); PH,URINE 6.5 (5.0-8.0); PROTEIN URINE NEGATIVE (NEGATIVE)
[2023-03-01 15:04] LABS: BASOPHILS # (AUTO) 0.1 K/uL (0.0-0.2); BASOPHILS % (AUTO) 0.8 % (0.0-2.0); EOSINOPHILS # (AUTO) 0.1 K/uL (0.0-0.4); EOSINOPHILS % (AUTO) 0.9 % (0.0-4.0); HEMATOCRIT 38.2 % (36-48); HEMOGLOBIN 13.4 g/dL (12.0-16.0); LYMPHOCYTES # (AUTO) 2.1 K/uL (1.0-5.5); MEAN CORPUSCULAR HEMOGLOBIN 33 pg (27-31); MEAN CORPUSCULAR HGB CONC 35 % (32-36); MEAN CORPUSCULAR VOLUME 95 fL (79.0-98.0); MONOCYTES # (AUTO) 0.5 K/uL (0.0-1.0); MONOCYTES % (AUTO) 6.6 % (1.7-9.3); NEUTROPHILS % (AUTO) 64.7 % (40.0-70.0); PLATELET COUNT (AUTO) 197 K/uL (130-430); RED BLOOD CELL COUNT(AUTO) 4.01 MIL/uL (4.2-6.2); RED CELL DISTRIBUTION WIDTH 12.8 % (9.0-15.0); WHITE BLOOD COUNT (AUTO) 7.7 K/uL (4.8-10.8)
[2023-03-01] MEDS ORDERED: KETOROLAC TROMETHAMINE 30 MG VIAL IM ONE (15:15)
[2023-03-01 15:19] LABS: CALCIUM 8.7 mg/dL (8.4-11.0); CREATININE 0.61 mg/dL (0.55-1.30)
[2023-03-01 15:31] LABS: ALBUMIN 3.4 g/dL (3.4-4.8); FREE T4 (FREE THYROXINE) 0.9 ng/dL (0.6-1.6); THYROID STIMULATING HORMONE 1.02 uIu/mL (0.34-4.82); TOTAL BILIRUBIN 0.8 mg/dL (0.0-1.0)
[2023-03-01 16:16] VITALS: BP_SYST 154; PULSE 82; RESP 16; TEMP 98.2; O2SAT 98
== END 2023-03-01 16:24 | disposition home or self-care (01) ==
LOC: SED 13:57
DX: S80.01XA Contusion of right knee, initial encounter (principal); J44.9 Chronic obstructive pulmonary disease, unspecified; E11.9 Type 2 diabetes mellitus without complications; I10 Essential (primary) hypertension; Z79.899 Other long term (current) drug therapy; W19.XXXA Unspecified fall, initial encounter; Y93.89 Activity, other specified; Y92.89 Other specified places as the place of occurrence of the external cause; Y99.8 Other external cause status
CPT/HCPCS: 99285; 80053; 84439; 83690; 84443; 85025; 36415; 93005; 73564; 96372; 81003; J1885

== ENCOUNTER 2023-08-25 09:39 | Outpatient (CLI) | payer OTHER, MEDICAID ==
[~2023-08-25 09:39] MED LIST changes: +LOSA-415 PO; -LOSA100T4 PO
== END 2023-08-25 18:11 | disposition home or self-care (01) ==
LOC: SNM 09:39
PROVIDERS: ATTEND Internal Medicine Gastroenterology
DX: R93.3 Abnormal findings on diagnostic imaging of other parts of digestive tract (principal)
CPT/HCPCS: 78264; A9541

== ENCOUNTER 2023-12-20 21:23 | Emergency (ER) | payer OTHER, MEDICAID ==
[~2023-12-20] VITALS: Ht 137.2 cm; Wt 58.1 kg
[2023-12-20 21:40] VITALS: BP_SYST 208; PULSE 94; RESP 18; TEMP 98.1; O2SAT 100
[2023-12-21] MEDS: LABETALOL HCL 20 MG/4 ML CARTRIDGE IVP ONE (00:22)
[2023-12-21 00:39] LABS: BASOPHILS # (AUTO) 0.2 K/uL (0.0-0.2); BASOPHILS % (AUTO) 2.4 % (0.0-2.0); HEMOGLOBIN 12.3 g/dL (12.0-16.0); LYMPHOCYTES # (AUTO) 1.2 K/uL (1.0-5.5); MEAN CORPUSCULAR HEMOGLOBIN 31 pg (27-31); MEAN CORPUSCULAR HGB CONC 34 % (32-36); MEAN CORPUSCULAR VOLUME 89 fL (79.0-98.0); MONOCYTES # (AUTO) 0.2 K/uL (0.0-1.0); NEUTROPHILS # (AUTO) 6.3 K/uL (1.8-7.7); NEUTROPHILS % (AUTO) 80.6 % (40.0-70.0); PLATELET COUNT (AUTO) 218 K/uL (130-430); RED BLOOD CELL COUNT(AUTO) 4.03 MIL/uL (4.2-6.2); RED CELL DISTRIBUTION WIDTH 14.1 % (9.0-15.0); WHITE BLOOD COUNT (AUTO) 7.9 K/uL (4.8-10.8)
[2023-12-21 00:47] LABS: ANION GAP 8 (5-15); CALCIUM 9.2 mg/dL (8.4-11.0); CARBON DIOXIDE 28 mmol/L (23-29); CHLORIDE 98 mmol/L (98-107); GFR AFRICAN AMERICAN 93 mL/min (>90); GLUCOSE 251 mg/dL (74-106); POTASSIUM 3.8 mmol/L (3.5-5.1); SODIUM SERUM 134 mmol/L (136-145); UREA NITROGEN, BLOOD 30 mg/dL (8-21)
[2023-12-21 00:50] LABS: GFR NON AFRICAN-AMERICAN 77 mL/min (>90)
[2023-12-21 00:53] LABS: ALANINE AMINOTRANSFERASE 25 U/L (12-78); ALBUMIN 3.5 g/dL (3.4-4.8); ASPARTATE AMINOTRANSFERASE 18 U/L (10-37); BILIRUBIN,DIRECT 0.1 mg/dL (0.0-0.3); TOTAL BILIRUBIN 0.5 mg/dL (0.0-1.0); TOTAL PROTEIN, SERUM 7.5 g/dL (6.4-8.3)
[2023-12-21] MEDS: ENALAPRILAT DIHYDRATE 1.25 MG/ML VIAL IVP ONE (01:47)
[2023-12-21] MEDS ORDERED: AMLO5TAB4 PO (02:59)
[2023-12-21 03:18] VITALS: BP_SYST 146; PULSE 71; RESP 18; TEMP 98.2; O2SAT 98
== END 2023-12-21 03:16 | disposition home or self-care (01) ==
LOC: SED 21:23
DX: I10 Essential (primary) hypertension (principal); R51.9 Headache, unspecified; J44.9 Chronic obstructive pulmonary disease, unspecified; E11.9 Type 2 diabetes mellitus without complications; Z79.899 Other long term (current) drug therapy
CPT/HCPCS: 36415; 80048; 80076; 83880; 84484; 85025; 85379; 96374; 96375; 99285

== ENCOUNTER 2024-04-10 21:58 | Emergency (ER) | payer OTHER, MEDICAID ==
[~2024-04-10] VITALS: Ht 137.2 cm; Wt 56.7 kg
[~2024-04-10 21:58] MED LIST changes: +AMLO5TAB4 PO; +ATOR-449 PO; -LIP10 PO
[2024-04-10 22:09] VITALS: BP_SYST 207; BP_SYST 227; PULSE 81; RESP 18; TEMP 97.8; O2SAT 97
[2024-04-10] MEDS: hydrALAZINE HCL 20 MG/ML VIAL IVP ONE (23:21)
[2024-04-10 23:36] LABS: BASOPHILS % (AUTO) 0.5 % (0.0-2.0); EOSINOPHILS # (AUTO) 0.1 K/uL (0.0-0.4); EOSINOPHILS % (AUTO) 0.7 % (0.0-4.0); HEMATOCRIT 36.3 % (36-48); HEMOGLOBIN 12.6 g/dL (12.0-16.0); LYMPHOCYTES # (AUTO) 2.6 K/uL (1.0-5.5); LYMPHOCYTES % (AUTO) 28.4 % (20.5-51.5); MEAN CORPUSCULAR HEMOGLOBIN 31 pg (27-31); MEAN CORPUSCULAR HGB CONC 35 % (32-36); MEAN CORPUSCULAR VOLUME 91 fL (79.0-98.0); MONOCYTES # (AUTO) 0.5 K/uL (0.0-1.0); MONOCYTES % (AUTO) 5.7 % (1.7-9.3); NEUTROPHILS # (AUTO) 5.8 K/uL (1.8-7.7); NEUTROPHILS % (AUTO) 64.7 % (40.0-70.0); PLATELET COUNT (AUTO) 225 K/uL (130-430); RED CELL DISTRIBUTION WIDTH 17.5 % (9.0-15.0)
[2024-04-11 00:04] LABS: ALANINE AMINOTRANSFERASE 23 U/L (12-78); ALBUMIN 3.3 g/dL (3.4-4.8); ANION GAP 9 (5-15); ASPARTATE AMINOTRANSFERASE 15 U/L (10-37); CALCIUM 8.8 mg/dL (8.4-11.0); CARBON DIOXIDE 28 mmol/L (23-29); CHLORIDE 102 mmol/L (98-107); CREATININE 0.59 mg/dL (0.55-1.30); GFR AFRICAN AMERICAN 132 mL/min (>90); GFR NON AFRICAN-AMERICAN 109 mL/min (>90); GLUCOSE 186 mg/dL (74-106); POTASSIUM 3.6 mmol/L (3.5-5.1); SODIUM SERUM 139 mmol/L (136-145); TOTAL BILIRUBIN 0.6 mg/dL (0.0-1.0); TOTAL PROTEIN, SERUM 6.9 g/dL (6.4-8.3); UREA NITROGEN, BLOOD 20 mg/dL (8-21)
[2024-04-11 00:06] LABS: BILIRUBIN,DIRECT 0.1 mg/dL (0.0-0.3)
[2024-04-11] MEDS ORDERED: TOPXL100 PO (00:17)
[2024-04-11] MEDS ORDERED: HYDR50TA44 PO (00:17)
[2024-04-11 00:27] LABS: PROTHROMBIN TIME 10.1 SECS (9.5-12.5)
[2024-04-11] MEDS: MORPHINE 4 MG INJ. 4 MG/ML VIAL IVP ONE (01:01)
[2024-04-11] MEDS: ONDANSETRON HCL 4 MG/2 ML VIAL IVP ONE (01:02)
[2024-04-11] MEDS ORDERED: ONDA-8 TL (02:18)
[2024-04-11] MEDS ORDERED: CLON0.1T PO (02:18)
[2024-04-11 02:29] VITALS: BP_SYST 134; PULSE 93; RESP 14; TEMP 98; O2SAT 98
== END 2024-04-11 02:29 | disposition home or self-care (01) ==
LOC: SED 21:58
DX: R51.9 Headache, unspecified (principal); I16.0 Hypertensive urgency; I10 Essential (primary) hypertension; E11.9 Type 2 diabetes mellitus without complications; J44.9 Chronic obstructive pulmonary disease, unspecified; Z79.899 Other long term (current) drug therapy; Z79.2 Long term (current) use of antibiotics
CPT/HCPCS: 99285; 96374; 70450; 71045; 80076; 80048; 83880; 85025; 85610; 85730; 84484; 36415; 93005; 96375; J0360; J2405; J2270